=== PATIENT | male | born 1940 | race Caucasian/White ===

== ENCOUNTER → 2016-12-21 | Outpatient (CLI) | payer OTHER | LOC: FLAB 11:18 | PROVIDERS: ATTEND Family Medicine | DX: M79.671 Pain in right foot (principal) ==

== ENCOUNTER → 2017-12-11 | Outpatient (CLI) | payer OTHER | LOC: FIMAGING 09:08 | PROVIDERS: ATTEND Family Medicine | DX: E11.9 Type 2 diabetes mellitus without complications (principal); E78.00 Pure hypercholesterolemia, unspecified; E78.5 Hyperlipidemia, unspecified; Z82.49 Family history of ischemic heart disease and other diseases of the circulatory system ==

== ENCOUNTER → 2018-01-03 | Day surgery (SDC) | payer OTHER ==
[~2018-01-03] MED LIST: ASPIRIN EC 325 MG TAB PO ONE; ATORVASTATIN CALCIUM 40 MG TAB PO SCH; ATROPINE SULFATE 1 MG/10 ML SYR IVP PRN; ATROPINE SULFATE 1 MG/10 ML SYR ONE; DIAZEPAM 5 MG TAB PO ONE; FAMOTIDINE 20 MG TAB PO ONE; HEPARIN 10,000 UNIT/10 ML MDV (1,000 UNIT/ML) ONE; HYDROCODONE/APAP 5/325 TAB PO PRN; IOPAMIDOL (ISOVUE-370) 150 ML BTL IV ONE; LIDOCAINE 1% 300 MG/30 ML SDV ONE; MIDAZOLAM 2 MG/2 ML VIAL ONE; NITROGLYCERIN 0.4 MG BTL SL PRN; NS 1,000 ML IV ONE; ONDANSETRON 4 MG/2 ML VIAL IVP PRN; OXYCODONE/APAP 5/325 TAB PO PRN; diphenhydrAMINE 25 MG CAP PO ONE; fentaNYL 100 MCG/2 ML INJ ONE
--- NOTE | 2018-01-03 08:08 | CPEKG ---
Heart Rate: 78 RR Interval: 769 P-R Interval: 148 QRSD Interval: 106 QT Interval: 376 QTC Interval: 429 P [place]: 33 QRS [place]: -56 T Wave [place]: 72 EKG Severity - ABNORMAL ECG - EKG Impression: SINUS RHYTHM EKG Impression: MULTIPLE VENTRICULAR PREMATURE COMPLEXES EKG Impression: LEFT ANTERIOR FASCICULAR BLOCK EKG Impression: ABNRM R PROG, CONSIDER ASMI OR LEAD PLACEMENT Electronically Signed By: Sawyer Strong 03-Jan-2018 15:51:43
[2018-01-03 08:30] LABS: PLATELET COUNT 237 10^3/uL (150-400)
[2018-01-03 08:36] LABS: INR 0.93 (0.83-1.16); PROTIME(PATIENT) 12.7 SEC (12.0-15.0)
--- NOTE | 2018-01-03 09:36 | PDHPUP ---
History & Physical Update H&P update statement: This history and physical update is based on an assessment of the patient which was completed after admission or registration (within 24 hours), but prior to the surgery/procedure.77 year old male with hx of 3V CABG in 1995 and PCI in 2003 with recent abnormal nuclear stress test and sob. H&P update: H&P reviewed & patient examined, no change in patient's condition since H&P completed
--- NOTE | 2018-01-03 09:37 | PDPROPOC ---
Sedation Plan of Care Sedation Plan of Care: vital signs stable, mental status noted, patient educated of risks, benefits, alternatives, patient can tolerate sedation ASA Classification: ASA 2 Planned drugs: fentanyl, midazolam Mallampati Score: Class 2 Mallampati Reference Image: Patient passed 3-3-2 rule?: Yes
--- NOTE | 2018-01-03 12:08 | CPIP ---
[f rep st] INVASIVE CARDIAC PROCEDURE DATE OF PROCEDURE: 01/03/2018 PROCEDURE PERFORMED: 1. Left heart catheterization. 2. Left coronary angiography. 3. Right coronary angiography. 4. Saphenous vein graft angiography. 5. Left ventriculogram. 6. Right common femoral artery angiography. INDICATION FOR LEFT HEART CATHETERIZATION: The patient is a 77-year-old gentleman with a known histo ry of coronary artery disease status post 3 vessel CABG in 1995 with PCI to the right coronary artery in 2003, who presented for preoperative evaluation in anticipation of shoulder surgery. He underwen t nuclear stress test demonstrating a large area of ischemia in the inferior inferolateral wall with some reversibility and LVEF of 45%. He has some mild complaints of shortness of breath. In the sett ing of upcoming surgery, decision was made to pursue left heart catheterization. PROCEDURE: After informed consent was obtained, the patient was brought to the cardiac catheterizati on lab where he was prepped and draped in a sterile fashion. Using 1% lidocaine, the right groin was anesthetized. Using modified Seldinger, micropuncture technique, 6-[place] catheter was placed into the right common femoral artery without complications. A JL-4 catheter was used to take images of the left coronary anatomy in multiple projections. JL4 ca theter was exchanged over a guidewire for a JR4 catheter. JR4 catheter was used to take images of th e right coronary artery in multiple projections. The JR4 catheter was then used to cannulate the sap henous vein graft to the circumflex and obtuse marginal branch. Attempts to find further vein grafts with the right catheter were unsuccessful. Angiography was obtained of the left subclavian and left internal mammary artery which were ultimatel y not used for bypass graft and courses through its [place]. Attempts to evaluate the right subclavian were unsuccessful. The JR4 catheter was exchanged over a guidewire for angled pigtail catheter. Angled pigtail catheter was used to assess left ventricular pressure. Left ventriculogram was performed, aortic valve gradi ent was assessed. Angled pigtail catheter was removed over a guidewire. Angiography of the right common femoral artery was obtained demonstrating sheath placement in the rig ht common femoral artery just proximal to the bifurcation. FINDINGS: 1. Left main demonstrates mild nonobstructive coronary disease approximately 10% distally. 2. Left anterior descending artery demonstrates 20% to 30% proximal stenosis. The remainder of the LAD is free of coronary artery disease. There is a first diagonal branch with a 60% to 70% proximal stenosis. However, this is a sub 2 mm vessel and not amenable to peripheral intervention. 3. Circumflex artery is subtotally occluded proximally. There is a first obtuse marginal branch wit h mild luminal irregularities. 4. Right coronary artery demonstrates patent stent to the proximal RCA with minimal luminal irregula rities through the proximal, mid and distal segments. The proximal right coronary artery stent demon strates minimal 10%-20% in-stent stenosis. The distal PLV branch is patent. 5. Saphenous vein graft. There is a saphenous vein graft that is widely patent to the circumflex an d second obtuse marginal branch. The circumflex and obtuse marginal branch at site of anastomosis de monstrates no significant coronary artery disease. Attempts to cannulate the second vein graft were unsuccessful. Aortogram demonstrated no evidence of further vein grafts. Attempts to cannulate the right subclavian to evaluate possible HARRY were unsu ccessful. However, in the setting of a patent proximal stent to the RCA with no flow-limiting stenos is to the distal segments of the RCA, no further attempts to cannulate the RCA were obtained. Left ventriculogram demonstrated LVEF of approximately 50%. HEMODYNAMICS: LVEDP 18 mmHg. Aortic valve gradient none. CONCLUSIONS: 1. No indication for revascularization at this time. 2. Patent saphenous vein graft to the circumflex and second obtuse marginal branch. 3. Patent proximal stent to the right coronary artery. 4. No flow-limiting stenosis within the LAD. PLAN: Recommend the patient focus on maximizing medical therapy. He is currently not on statin ther apy with LDL of 196. We will plan to have him follow up with the office. No further diagnostic testing required prior to shoulder surgery. /[id number]/MODL
== END | disposition home or self-care (01) ==
LOC: FCATH 07:41
PROVIDERS: ATTEND Internal Medicine Cardiovascular Disease
PROC: B41F1ZZ Fluoroscopy of Right Lower Extremity Arteries using Low Osmolar Contrast (ICD-10-PCS; principal; 2018-01-03)
PROC: 4A023N8 Measurement of Cardiac Sampling and Pressure, Bilateral, Percutaneous Approach (ICD-10-PCS; principal; 2018-01-03)
PROC: B21F1ZZ Fluoroscopy of Other Bypass Graft using Low Osmolar Contrast (ICD-10-PCS; principal; 2018-01-03)
PROC: B2111ZZ Fluoroscopy of Multiple Coronary Arteries using Low Osmolar Contrast (ICD-10-PCS; principal; 2018-01-03)
PROC: B2151ZZ Fluoroscopy of Left Heart using Low Osmolar Contrast (ICD-10-PCS; principal; 2018-01-03)
DX: I25.10 Atherosclerotic heart disease of native coronary artery without angina pectoris (principal); Z95.1 Presence of aortocoronary bypass graft; I25.2 Old myocardial infarction; E11.9 Type 2 diabetes mellitus without complications; E78.5 Hyperlipidemia, unspecified; E78.00 Pure hypercholesterolemia, unspecified; I10 Essential (primary) hypertension; Z96.643 Presence of artificial hip joint, bilateral; Z85.46 Personal history of malignant neoplasm of prostate
CPT/HCPCS: J0461; J1644; J2250; J3010; Q9967